=== PATIENT | male | born 1980 | race African-American/Black ===

== ENCOUNTER 2020-08-30 04:37 | Emergency (ER) | payer OTHER ==
[2020-08-30] MEDS ORDERED: diphenhydrAMINE 50 MG/ML VIAL ONE (05:14)
[2020-08-30] MEDS ORDERED: Haloperidol Lactate 5 MG/ML VIAL ONE (05:14)
[2020-08-30 05:20] LABS: #Basophils 0.1 thou/uL (0.0-0.2); #Monocytes 0.6 thou/uL (0.11-0.59); %Basophils 0.7 % (0.0-1.0); %Eosinophils 0.3 % (0.0-10.0); %Monocytes 8.1 % (0.0-10.0); %Neutrophils 51.8 % (42.0-75.0); Hemoglobin 17.6 g/dL (14.0-18.0); Mean Corpuscular Hemoglobin 32.2 pg (27.0-31.0); Mean Corpuscular Volume 94.7 fL (78.0-98.0); Mean Platelet Volume 6.9 fL (7.4-10.4); Platelet Count 349 thou/uL (130-400); RBC Distribution Width 13.8 % (11.5-14.5); Red Blood Cell (RBC) Count 5.46 mill/uL (4.70-6.10); White Blood Cell (WBC) Count 7.7 thou/uL (4.8-10.8)
[2020-08-30 05:44] LABS: ALT (SGPT) 10 U/L (8-55); AST (SGOT) 21 U/L (5-34); Albumin 4.8 g/dL (3.5-5.0); Alkaline Phosphatase 68 U/L (40-110); Anion Gap 18 mmol/L (10-20); BUN (Urea Nitrogen) 25 mg/dL (8.9-20.6); Bilirubin, Total 0.5 mg/dL (0.2-1.2); Calc. Creatinine Clearance 0 mL/min (70-130); Calcium 10.7 mg/dL (7.8-10.44); Carbon Dioxide 28 mmol/L (22-29); Chloride 93 mmol/L (98-107); Estimated GFR-MDRD 55; Globulin 4.9 g/dL (2.4-3.5); Glucose 116 mg/dL (70-105); Lipase 10 U/L (8-78); Potassium 3.9 mmol/L (3.5-5.1); Protein, Total 9.7 g/dL (6.0-8.3); Sodium 135 mmol/L (136-145)
[2020-08-30] MEDS ORDERED: Promethazine HCl 25 MG/ML VIAL ONE (05:44)
[2020-08-30] MEDS ORDERED: Ondansetron ODT 8 MG TAB ONE (06:33)
[2020-08-30] MEDS ORDERED: Metoclopramide HCl 10 MG/2 ML VIAL ONE (06:33)
--- NOTE | 2020-08-30 07:44 | RAD ---
RADIOGRAPH CHEST ONE VIEW RADIOGRAPH ABDOMEN 2 VIEWS: DATE: 08/30/2020 HISTORY: 39-year-old male with abdominal pain FINDINGS: There are no airspace densities or pulmonary edema. The lateral costophrenic angles are sharp. There is no cardiomegaly. There is no evidence of pneumothorax or pneumoperitoneum. There is no evidence of dilated small bowel loops, differential air-fluid levels, or organomegaly. IMPRESSION: 1) No acute cardiopulmonary findings. 2) no evidence of bowel obstruction.
== END 2020-08-30 06:20 | disposition home or self-care (01) ==
LOC: ERS 04:37
DX: R11.2 Nausea with vomiting, unspecified (principal); F12.10 Cannabis abuse, uncomplicated; N17.9 Acute kidney failure, unspecified; F17.210 Nicotine dependence, cigarettes, uncomplicated; F41.9 Anxiety disorder, unspecified
CPT/HCPCS: 74022; 80053; 83690; 85025; 96372; 96374; 96375; J1200; J1630; J2550; J2765; Q0162

== ENCOUNTER 2024-01-25 04:22 | Observation (INO) | payer OTHER ==
[2024-01-25] MEDS ORDERED: Morphine 4 MG/ML VIAL ONE (04:36)
[2024-01-25] MEDS ORDERED: Morphine 2 MG/ML VIAL ONE (04:37)
[2024-01-25 04:52] LABS: #Eosinphils 0.1 thou/uL (0.0-0.7); #Monocytes 0.9 thou/uL (0.11-0.59); #Neutrophils 5.3 thou/uL (1.40-6.50); %Basophils 0.3 % (0.0-1.0); %Eosinophils 0.9 % (0.0-10.0); %Lymphocytes 37.7 % (21.0-51.0); %Monocytes 8.9 % (0.0-10.0); %Neutrophils 51.9 % (42.0-75.0); Hematocrit 43.3 % (42.0-52.0); Hemoglobin 14.8 g/dL (14.0-18.0); Mean Corpuscular HGB CONC 34.2 g/dL (32.0-36.0); Mean Corpuscular Hemoglobin 31.7 pg (27.0-31.0); Mean Corpuscular Volume 92.7 fl (78.0-98.0); Mean Platelet Volume 8.8 fL (7.4-10.4); Platelet Count 437 10x3/uL (130-400); Red Blood Cell (RBC) Count 4.67 mill/uL (4.70-6.10); White Blood Cell (WBC) Count 10.3 10x3/uL (4.8-10.8)
[2024-01-25 05:59] LABS: ALT (SGPT) 9 U/L (8-55); AST (SGOT) 13 U/L (5-34); Albumin 4.4 g/dL (3.5-5.0); Alkaline Phosphatase 71 U/L (40-110); Anion Gap 17 mmol/L (10-20); BUN (Urea Nitrogen) 23 mg/dL (8.9-20.6); Bilirubin, Total 0.5 mg/dL (0.2-1.2); Calc. Creatinine Clearance 0 mL/min (70-130); Calcium 10.5 mg/dL (7.8-10.44); Carbon Dioxide 25 mmol/L (22-29); Chloride 98 mmol/L (98-107); Estimated GFR 55; Globulin 4.1 g/dL (2.4-3.5); Glucose 95 mg/dL (70-105); Lipase 24 U/L (8-78); Potassium 4.2 mmol/L (3.5-5.1); Protein, Total 8.5 g/dL (6.0-8.3); Sodium 136 mmol/L (136-145)
[2024-01-25] MEDS ORDERED: Ketorolac Tromethamine 30 MG (1 mL) VIAL ONE (06:32)
[2024-01-25 07:28] LABS: Bacteria/HPF None Seen HPF (None Seen); Bilirubin Negative (Negative); Blood, Urine Trace (Negative); CAUTI Indications for Culture Pelvic or flank pain; Clarity Clear (Clear); Glucose, Urine (Dipstick) Normal (Negative); Ketone, Urine 10 mg/dL (Negative); Leukocyte Negative Leu/uL (Negative); Nitrite Negative (Negative); Protein, Urine (Dipstick) 30 mg/dL (Neg-Trace); Squamous Epithelial 0-3 HPF (0-3); pH, Urine 6.5 (5.0-9.0)
[2024-01-25] MEDS ORDERED: Acetaminophen 325 MG TAB PO PRN (07:39)
[2024-01-25] MEDS ORDERED: Glucagon 1 MG/ML KIT IM PRN (07:39)
[2024-01-25] MEDS ORDERED: Dextrose 5% in Water 1,000 ML IV PRN (07:39)
[2024-01-25] MEDS ORDERED: Ipratropium/Albuterol 3 ML NEB NEB PRN (07:39)
[2024-01-25] MEDS ORDERED: hydrALAZINE 20 MG/ML VIAL SLOW IVP PRN (07:39)
[2024-01-25] MEDS ORDERED: Ondansetron PF 4 MG/2 ML Vial IVP PRN (07:39)
[2024-01-25] MEDS ORDERED: Dextrose 50% Abboject 50 ML SYRINGE SLOW IVP PRN (07:39)
[2024-01-25] MEDS ORDERED: Promethazine HCl 25 MG/ML VIAL IM PRN (07:39)
[2024-01-25] MEDS ORDERED: Morphine 2 MG/ML VIAL SLOW IVP PRN (07:39)
[2024-01-25] MEDS ORDERED: HYDROcodone/Acetaminophen 10/325 mg Tablet PO PRN (07:39)
[2024-01-25] MEDS ORDERED: Acetaminophen/Codeine 30-300mg Tablet PO PRN (07:42)
[2024-01-25 08:09] LABS: Specific Gravity, Urine Greater than 1.060 (1.002-1.036)
[2024-01-25 08:15] LABS: WBC/HPF 0-3 HPF (0-3)
[2024-01-25 08:16] LABS: Urine Culture Reflex No No
[2024-01-25] MEDS: Famotidine 20 MG TAB PO SCH (09:17)
[2024-01-25] MEDS ORDERED: Iopamidol 370 76% 100 ML VIAL ONE (09:27)
[2024-01-25] MEDS: Sodium Chloride 0.9% 1,000 ML IV SCH (09:50)
[2024-01-25] MEDS: Famotidine/PF 20 mg/2ml Vial SLOW IVP SCH (09:51)
[2024-01-25] MEDS: Piperacillin/Tazobactam 3.375 GM in Sodium Chloride 0.9% 100 ML IVPB SCH (09:51)
[2024-01-25 10:51] VITALS: BP 145/83; TEMP 97.9
[2024-01-25 10:59] VITALS: BMI 19.8
[2024-01-25] MEDS ORDERED: Piperacillin/Tazobactam 3.375 GM in Sodium Chloride 0.9% 100 ML IVPB SCH (14:00)
== END 2024-01-25 11:14 | disposition home or self-care (01) ==
LOC: ERS 04:22 → SURG A 09:01
PROVIDERS: ADMIT Surgery; ATTEND Surgery
DX: R10.32 Left lower quadrant pain (principal); F17.210 Nicotine dependence, cigarettes, uncomplicated; F12.90 Cannabis use, unspecified, uncomplicated
CPT/HCPCS: 36415; 74177; 80053; 81001; 83690; 85025; 93005; 96361; 96374; 96375; G0378; J1885; J2270; J2272; J2543; J3490; J7050; Q9967; S0028

== ENCOUNTER 2024-09-07 06:28 | Observation (INO) | payer OTHER ==
[2024-09-07] MEDS ORDERED: Morphine 10 MG/ML VIAL ONE (07:17)
[2024-09-07] MEDS ORDERED: Ondansetron PF 4 MG/2 ML Vial ONE (07:17)
[2024-09-07 07:19] LABS: #Basophils 0.03 10x3/uL (0.0-0.2); %Basophils 0.4 % (0.0-1.0); %Eosinophils 0.5 % (0.0-10.0); %Lymphocytes 29.2 % (21.0-51.0); %Monocytes 7.8 % (0.0-10.0); %Neutrophils 61.8 % (42.0-75.0); Hematocrit 43.7 % (42.0-52.0); Hemoglobin 14.9 g/dL (14.0-18.0); Mean Corpuscular HGB CONC 34.1 g/dL (32.0-36.0); Mean Corpuscular Hemoglobin 31.4 pg (27.0-31.0); Mean Platelet Volume 8.6 fL (7.4-10.4); Platelet Count 364 10x3/uL (130-400); RBC Distribution Width 14.7 % (11.5-14.5); Red Blood Cell (RBC) Count 4.75 mill/uL (4.70-6.10)
[2024-09-07 07:39] LABS: ALT (SGPT) 12 U/L (8-55); AST (SGOT) 18 U/L (5-34); Albumin 3.8 g/dL (3.5-5.0); Alkaline Phosphatase 75 U/L (40-110); Anion Gap 16 mmol/L (10-20); BUN (Urea Nitrogen) 17 mg/dL (8.9-20.6); Bilirubin, Total 0.4 mg/dL (0.2-1.2); Calc. Creatinine Clearance 0 mL/min (70-130); Calcium 10.1 mg/dL (7.8-10.44); Carbon Dioxide 25 mmol/L (22-29); Chloride 98 mmol/L (98-107); Estimated GFR 58; Globulin 4.8 g/dL (2.4-3.5); Glucose 92 mg/dL (70-105); Lipase 85 U/L (8-78); Potassium 4.5 mmol/L (3.5-5.1); Protein, Total 8.6 g/dL (6.0-8.3); Sodium 134 mmol/L (136-145)
[2024-09-07 10:30] LABS: Bacteria/HPF None Seen HPF (None Seen); Bilirubin Negative (Negative); Blood, Urine Negative (Negative); CAUTI Indications for Culture Pelvic or flank pain; Clarity Clear (Clear); Glucose, Urine (Dipstick) Normal (Negative); Ketone, Urine 20 mg/dL (Negative); Leukocyte Negative Leu/uL (Negative); Nitrite Negative (Negative); Protein, Urine (Dipstick) Negative (Neg-Trace); RBC/HPF 0-3 HPF (0-3); Squamous Epithelial None Seen HPF (0-3); Urobilinogen Normal mg/dL (Less than 2); WBC/HPF 0-3 HPF (0-3); pH, Urine 7.5 (5.0-9.0)
[2024-09-07 10:31] LABS: Urine Culture Reflex No No
[2024-09-07] MEDS ORDERED: Iopamidol-370 76% 500 ML MDV (1 ML CHARGE) ONE (10:34)
[2024-09-07] MEDS ORDERED: GASTROGRAFIN 30 ML BOT ONE (10:44)
[2024-09-07 10:59] LABS: Lactic Acid 2.99 mmol/L (0.5-2.2)
[2024-09-07] MEDS ORDERED: Ondansetron PF 4 MG/2 ML Vial IVP PRN (11:34)
[2024-09-07] MEDS ORDERED: Acetaminophen 650 MG Suppository PR PRN (11:34)
[2024-09-07] MEDS ORDERED: Ondansetron ODT 4 MG TAB PO PRN (11:34)
[2024-09-07] MEDS ORDERED: Acetaminophen 325 MG TAB PO PRN (11:34)
[2024-09-07 12:40] VITALS: BMI 19.8
[2024-09-07 13:37] LABS: Lactic Acid 0.97 mmol/L (0.5-2.2)
[2024-09-07] MEDS: Sodium Chloride 0.9% 1,000 ML IV SCH ×2 (14:17→18:52)
[2024-09-07] MEDS: Morphine 2 MG/ML VIAL SLOW IVP PRN (14:18)
[2024-09-07] MEDS: Magnesium Citrate 300 ML BOT PO SCH (14:23)
[2024-09-07 23:52] VITALS: TEMP 97.9
[2024-09-08 05:55] LABS: #Basophils Less than 0.03 10x3/uL (0.0-0.2); %Basophils 0.3 % (0.0-1.0); %Eosinophils 0.8 % (0.0-10.0); %Lymphocytes 29.8 % (21.0-51.0); %Monocytes 9.7 % (0.0-10.0); %Neutrophils 59.3 % (42.0-75.0); Hematocrit 40.3 % (42.0-52.0); Hemoglobin 13.5 g/dL (14.0-18.0); Mean Corpuscular HGB CONC 33.5 g/dL (32.0-36.0); Mean Corpuscular Hemoglobin 30.9 pg (27.0-31.0); Mean Corpuscular Volume 92.2 fL (78.0-98.0); Mean Platelet Volume 8.9 fL (7.4-10.4); Platelet Count 336 10x3/uL (130-400); RBC Distribution Width 14.8 % (11.5-14.5); Red Blood Cell (RBC) Count 4.37 mill/uL (4.70-6.10)
[2024-09-08 06:08] LABS: Anion Gap 12 mmol/L (10-20); BUN (Urea Nitrogen) 11 mg/dL (8.9-20.6); Calc. Creatinine Clearance 76 mL/min (70-130); Calcium 9.2 mg/dL (7.8-10.44); Carbon Dioxide 25 mmol/L (22-29); Chloride 106 mmol/L (98-107); Estimated GFR 91; Glucose 93 mg/dL (70-105); Potassium 4.5 mmol/L (3.5-5.1); Sodium 138 mmol/L (136-145)
[2024-09-08] MEDS: FLU (Fluarix Triv) TS24-25(6MOS UP)/PF 45 MCG/0.5 ML Syringe IM ONE (09:52)
[2024-09-08 12:53] VITALS: BP 110/78
== END 2024-09-08 12:50 ==
LOC: EEVIPCON 06:28 → ERS 06:28 → T4-A 11:28
PROVIDERS: ADMIT Internal Medicine; ATTEND Family Medicine
DX: R10.32 Left lower quadrant pain (principal); F17.200 Nicotine dependence, unspecified, uncomplicated; K59.00 Constipation, unspecified; E87.20 Acidosis, unspecified; E86.0 Dehydration; F19.90 Other psychoactive substance use, unspecified, uncomplicated; Z79.899 Other long term (current) drug therapy
CPT/HCPCS: 36415; 36416; 74177; 80048; 80053; 81001; 83605; 83690; 85025; 93005; 96361; 96374; 96375; 96376; G0378; J2270; J2272; J2405; J7030; Q9963; Q9967